=== PATIENT | male | born 1965 | race Caucasian/White ===

== ENCOUNTER → 2023-09-22 14:27 | Outpatient (REF) | payer BC, SELFPAY ==
[2023-09-22 15:48] LABS: Body Fluid WBC 5651 /CUMM
[2023-09-22 15:50] LABS: Body Fluid Second Tech EM
[2023-09-26 18:00] LABS: Lyme Ab Western Blot IgG Negative (Negative); Lyme Ab Western Blot IgM Negative (Negative)
== END ==
LOC: REG 14:27
PROVIDERS: ATTENDING PHYSICIAN Specialist
DX: M25.562 Pain in left knee (principal); M25.469 Effusion, unspecified knee
CPT/HCPCS: 86617; 87015; 87070; 87075; 87205; 89051; 89060